=== PATIENT | female | born 1990 | race Caucasian/White ===

== ENCOUNTER 2020-09-15 14:20 | Outpatient (CLI) | payer OTHER, SELFPAY ==
[2020-09-15 15:24] LABS: Beta HCG Quantitative < 2.39 mIU/ML
== END 2020-09-15 14:21 | disposition home or self-care (01) ==
PROVIDERS: Visit Provider Student in an Organized Health Care Education/Training Program
DX: O20.0 Threatened abortion (principal)
CPT/HCPCS: 36415; 84702

== ENCOUNTER 2021-06-23 09:32 | Outpatient (CLI) | payer OTHER, SELFPAY ==
--- NOTE | ~2021-06-23 | US_ITS ---
US OB limited 06/23/2021 10:36 Indication: Hypertension Procedure: High-resolution Limited obstetrical ultrasound using transabdominal technique Comparison: Ultrasound dated 12/10/2020 Findings: There is a single living intrauterine in vertex presentation. Placenta is fundal without previa. heart rate is 143 BPM. Amniotic fluid is normal with MAY measuring 21.6 cm (nor mal range for gestational age is 7.5-24.4 cm). Impression: 1: Single living intrauterine in vertex presentation. 2: Normal MAY measures 21.6 cm. Reviewed, dictated and finalized at location A. Impression: 1: Single living intrauterine in vertex presentation. 2: Normal MAY measures 21.6 cm.
[2021-06-23 10:00] VITALS: BP 128/77; PULSE 111
[2021-06-23 10:05] LABS: Basophils Percent Auto 0.3 % (0.2-1.2); Eosinophils Absolute Auto 0.1 K/mm3 (0-0.3); Eosinophils Percent Auto 0.5 % (0-4.4); Hematocrit 36.1 % (37.0-47.0); Hemoglobin 12.1 g/dL (12.0-15.0); Immature Granulocyte Absolute 0.13 K/mm3 (0.00-0.031); Immature Granulocyte Percent A 1.3 % (0-0.5); Lymphocytes Absolute Auto 1.35 K/mm3 (0.9-3.2); Lymphocytes Percent Auto 13.4 % (18.3-44.2); Mean Corpuscular HGB Conc 33.5 g/dl (32-36); Mean Corpuscular Hemoglobin 30.4 pg (26-34); Mean Corpuscular Volume 90.7 fl (80-100); Monocytes Absolute Auto 0.7 K/mm3 (0.1-0.6); Monocytes Percent Auto 6.6 % (2.6-8.5); Neutrophils Absolute Auto 7.8 K/mm3 (1.3-6.7); Neutrophils Percent Auto 77.9 % (45.5-73.1); Platelet Count Result 200 k/mm3 (150-375); Red Blood Count 3.98 M/mm3 (4.2-5.4); White Blood Count 10.1 K/mm3 (4.5-10.0)
[2021-06-23 10:06] LABS: Add Urine Microscopic? NO; Appearance Urine Clear (Clear); Bilirubin Urine Negative (Negative); Blood Urine Negative (Negative); Color Urine Straw (Yellow); Glucose Urine UA Negative (Negative); Ketones Urine Negative (Negative); Leukocyte Esterase Ur Negative LEU/UL (NEGATIVE); Nitrate Urine Negative (Negative); Protein Urine Negative (Negative); Urobilinogen Urine Negative mg/dL (<2.0)
[2021-06-23 10:07] LABS: Specific Grav Ur 1.002 (1.001-1.035)
[2021-06-23 10:12] LABS: Creatinine Urine 15.4 mg/dL; Total Protein Urine Random 14 mg/dL; Ur Ttl Prot Creatinine Ratio 0.91 mg/mg (0-0.20)
[2021-06-23 10:14] LABS: Alanine Aminotransferase 15 U/L (4-35); Albumin Level 3.6 g/dL (3.5-5.1); Alkaline Phosphatase 105 U/L (38-126); Anion Gap 9 mmol/L (8-16); Aspartate Amino Transferase 20 U/L (14-36); Bilirubin,Total 0.5 mg/dL (0.2-1.3); Blood Urea Nitrogen 3 mg/dL (7-17); Calcium 9.1 mg/dL (8.4-10.2); Carbon Dioxide 20 mmol/L (22-30); Chloride 107 mmol/L (98-107); Estimated Glomerular Filt Rate > 60; Glucose 91 mg/dL (65-110); Potassium 3.7 mmol/L (3.4-5.0); Sodium 136 mmol/L (137-145); Uric Acid 4.4 mg/dL (2.5-7.5)
[2021-06-23 10:15] VITALS: BP 114/75; PULSE 109
[2021-06-23 10:22] VITALS: BP 114/75; PULSE 106
--- NOTE | 2021-06-23 11:03 | PC.NURSE ---
1019- Spoke with Dr. Ruelas, labs and BP's reviewed. Patient to be sent for MAY, if normal patient may be discharged to home.
== END 2021-06-23 10:50 | disposition home or self-care (01) ==
LOC: ANHOBOP 09:38 → ANHOBPP 09:38
PROVIDERS: Visit Provider Student in an Organized Health Care Education/Training Program
DX: O13.9 Gestational [pregnancy-induced] hypertension without significant proteinuria, unspecified trimester (principal); Z3A.00 Weeks of gestation of pregnancy not specified
CPT/HCPCS: 36415; 59025; 76815; 80053; 81003; 82570; 84156; 84550; 85025; 87086; 87088; 99199

== ENCOUNTER 2021-07-07 14:26 | Inpatient (IN) | payer OTHER, SELFPAY ==
[2021-07-07] VITALS (80 sets, daily range): BP systolic 113–147; BP diastolic 58–98; PULSE 90–141; RESP 14–16; TEMP 36.4–36.9; O2SAT 97–100; BMI 35.4
--- NOTE | 2021-07-07 14:26 | LDADM ---
This patient, Lala Gonzáles, was admitted to Labor/Delivery/Recovery 107 on 07/07/21 at 14:26. Plans for labor, pain management and were discussed with patient. Patient/family oriented to hospital policies and general routines including ID bracelet, bed and alarms, visiting hours, pain management, procedures, bathroom and other care routines, personal items, smoking policy, room service/diet and guest tray routines, infant security routines, and visiting hours. Patient/Family are encouraged to report perceived risks to care and to ask questions if they do not understand what they are told or what they should do. See OBIX for further documentation.
[2021-07-07 15:16] LABS: Basophils Percent Auto 0.4 % (0.2-1.2); Eosinophils Percent Auto 0.4 % (0-4.4); Hematocrit 35.3 % (37.0-47.0); Hemoglobin 11.8 g/dL (12.0-15.0); Immature Granulocyte Absolute 0.09 K/mm3 (0.00-0.031); Immature Granulocyte Percent A 0.8 % (0-0.5); Lymphocytes Absolute Auto 1.48 K/mm3 (0.9-3.2); Lymphocytes Percent Auto 13.5 % (18.3-44.2); Mean Corpuscular HGB Conc 33.4 g/dl (32-36); Mean Corpuscular Volume 89.8 fl (80-100); Monocytes Absolute Auto 0.8 K/mm3 (0.1-0.6); Monocytes Percent Auto 6.8 % (2.6-8.5); Neutrophils Absolute Auto 8.6 K/mm3 (1.3-6.7); Neutrophils Percent Auto 78.1 % (45.5-73.1); Platelet Count Result 204 k/mm3 (150-375); Red Blood Count 3.93 M/mm3 (4.2-5.4)
[2021-07-07] MEDS: LACTATED RINGERS 1,000 ML 125 ML IV CONT ×2 (15:17→18:00)
[2021-07-07] MEDS: OXYTOCIN 30 UNITS/NS 500 ML 30 UNITS/500 ML BAG IV CONT (15:19)
[2021-07-07 15:28] LABS: Alanine Aminotransferase 15 U/L (4-35); Albumin Level 3.6 g/dL (3.5-5.1); Alkaline Phosphatase 115 U/L (38-126); Anion Gap 8 mmol/L (8-16); Aspartate Amino Transferase 23 U/L (14-36); Bilirubin,Total 0.4 mg/dL (0.2-1.3); Blood Urea Nitrogen 5 mg/dL (7-17); Calcium 9.6 mg/dL (8.4-10.2); Carbon Dioxide 21 mmol/L (22-30); Chloride 108 mmol/L (98-107); Estimated Glomerular Filt Rate > 60; Glucose 114 mg/dL (65-110); Potassium 3.4 mmol/L (3.4-5.0); Sodium 137 mmol/L (137-145); Uric Acid 4.8 mg/dL (2.5-7.5)
--- NOTE | 2021-07-07 16:58 | WPDANESEPP ---
Anes - Eval Pre Procedure Date/Time: 07/07/21 16:58 Pre Op Diagnosis: iol Patient Data Age: 31 Gender: F Height: 1.68 m Weight: 99.5 kg Last Vital Signs Temp 98.4 F 07/07/21 15:19 Pulse 95 07/07/21 16:30 Resp 16 07/07/21 15:19 BP 130/77 07/07/21 16:30 Allergies Allergy/AdvReac Type Severity Reaction Status Date / Time ibuprofen Allergy Mild Hives Verified 07/07/21 11:28 Home Medications Medication Instructions Recorded Confirmed Type prenat.vits,balaji,[id number]-[id number] 1 tablet PO DAILY 12/04/20 07/07/21 History cholecalciferol (vitamin D3) 100 100 mcg PO DAILY 01/29/21 07/07/21 History mcg (4,000 unit) capsule Laboratory Tests 07/07/21 07/07/21 07/07/21 15:09 15:09 15:09 WBC 11.0 K/mm3 H K/mm3 (4.5-10.0) RBC 3.93 M/mm3 L M/mm3 (4.2-5.4) Hgb 11.8 g/dL L g/dL (12.0-15.0) Hct 35.3 % L % (37.0-47.0) MCV 89.8 fl fl (80-100) MCH 30.0 pg pg (26-34) MCHC 33.4 g/dl g/dl (32-36) RDW 14.0 % % (11.5-14.5) Plt Count 204 k/mm3 k/mm3 (150-375) MPV 11.0 fl H fl (7.4-10.4) Immature Gran % (Auto) 0.8 % H % (0-0.5) Neut % (Auto) 78.1 % H % (45.5-73.1) Lymph % (Auto) 13.5 % L % (18.3-44.2) [place] % (Auto) 6.8 % % (2.6-8.5) Eos % (Auto) 0.4 % % (0-4.4) Baso % (Auto) 0.4 % % (0.2-1.2) Lymph # (Auto) 1.48 K/mm3 K/mm3 (0.9-3.2) [place] # (Auto) 0.8 K/mm3 H K/mm3 (0.1-0.6) Eos # (Auto) 0.0 K/mm3 K/mm3 (0-0.3) Baso # (Auto) 0.0 K/mm3 K/mm3 (0.0-0.1) Abs Immat Gran (auto) 0.09 K/mm3 H K/mm3 (0.00-0.031) Absolute Neuts (auto) 8.6 K/mm3 H K/mm3 (1.3-6.7) Absolute Nucleated RBC 0.0 K/mm3 K/mm3 (0.0-0.012) Nucleated RBC % 0.0 % % (0.0-0.2) Sodium 137 mmol/L mmol/L (137-145) Potassium 3.4 mmol/L mmol/L (3.4-5.0) Chloride 108 mmol/L H mmol/L (98-107) Carbon Dioxide 21 mmol/L L mmol/L (22-30) Anion Gap 8 mmol/L mmol/L (8-16) BUN 5 mg/dL L mg/dL (7-17) Creatinine 0.50 mg/dL L mg/dL (0.7-1.0) Estim Creat Clear Calc Not Reportable Estimated GFR > 60 (59 - ) Glucose 114 mg/dL H mg/dL (65-110) Uric Acid 4.8 mg/dL mg/dL (2.5-7.5) Calcium 9.6 mg/dL mg/dL (8.4-10.2) Total Bilirubin 0.4 mg/dL mg/dL (0.2-1.3) AST 23 U/L U/L (14-36) ALT 15 U/L U/L (4-35) Alkaline Phosphatase 115 U/L U/L (38-126) Total Protein 7.0 g/dL g/dL (6.3-8.2) Albumin 3.6 g/dL g/dL (3.5-5.1) RPR Pending Blood Type Antibody Screen 07/07/21 07/07/21 15:09 15:09 WBC RBC Hgb Hct MCV MCH MCHC RDW Plt Count MPV Immature Gran % (Auto) Neut % (Auto) Lymph % (Auto) [place] % (Auto) Eos % (Auto) Baso % (Auto) Lymph # (Auto) [place] # (Auto) Eos # (Auto) Baso # (Auto) Abs Immat Gran (auto) Absolute Neuts (auto) Absolute Nucleated RBC Nucleated RBC % Sodium Cancelled Potassium Cancelled Chloride Cancelled Carbon Dioxide Cancelled Anion Gap Cancelled BUN Cancelled Creatinine Cancelled Estim Creat Clear Calc Cancelled Estimated GFR Cancelled Glucose Cancelled Uric Acid Calcium Cancelled Total Bilirubin Cancelled AST Cancelled ALT Cancelled Alkaline Phosphatase Cancelled Total Protein Cancelled Albumin Cancelled RPR Blood Type O Positive Anti
--- NOTE | 2021-07-07 17:03 | PM.IMHP ---
H&P: HPI History of Present Illness Date/Time: 07/07/21 17:03 Patient is a 31-year-old last menstrual period 10/07/2020 currently 39 weeks gestation with an CHANTELL 07/14/2021. Patient is dated by LMP which is consistent with ultrasound on 12/10/2020 at 9 weeks gestation. Patient presents to labor and delivery for induction of labor secondary to gestational hypertension. Patient was seen in OBGYN office today where blood pressure was noted to be 156/92. She had a previous elevated blood pressure measurement of 158/78 at approximately 36 weeks gestation. Patient states she has been taking blood pressure measurements at home and all measurements have been within normal limits. In general, patient reports feeling well. She denies any headache, chest pain, shortness of breath, nausea, vomiting, right upper quadrant tenderness, or visual disturbances. patient denies any vaginal bleeding, leakage of fluid, or contractions. Reports good movement. Of note, patient does have a history of gestational hypertension in previous pregnancies. Chief Complaint: Induction of labor Gestational hypertension Review of Systems Review of Systems: All systems reviewed & are unremarkable except as noted in HPI and below Constitutional: Constitutional: Reports as per HPI, Reports no additional constitutional complaints, Denies chills, Denies fever(s), Denies headache(s) and Denies night sweats Eyes: Eyes: Reports as per HPI and Reports no additional eye complaints ENT: Reports system reviewed and no additional complaints, except as documented, Reports as per HPI, Reports Normal hearing present and Denies headache(s) Cardiovascular: Cardiovascular: Reports as per HPI, Reports no additional cardiovascular complaints, Denies chest pain and Denies dyspnea Respiratory: Respiratory: Reports as per HPI, Reports no additional respiratory complaints, Denies cough and Denies dyspnea Gastrointestinal: Gastrointestinal: Reports as per HPI, Reports no additional gastrointestinal complaints, Denies abdominal pain, Denies change in bowel habits, Denies change in stool character, Denies nausea and Denies vomiting Genitourinary: Genitourinary: Reports no additional female genitourinary complaints, Reports as per HPI, Denies abnormal vaginal bleeding, Denies genital lesions, Denies hot flashes, Denies dyspareunia, Denies pelvic pain, Denies sexual dysfunction, Denies urinary incontinence, Denies vaginal discharge, Denies vaginal dryness and Denies vaginal odor Musculoskeletal: Musculoskeletal: Reports no additional musculoskeletal complaints and Reports as per HPI Integumentary/Breasts: Skin/Breast: Reports system reviewed and no additional complaints, except as docu, Reports as per HPI, Denies breast pain and Denies nipple discharge Neurologic: Reports system reviewed and no additional complaints, except as documented, Reports as per HPI, Reports Normal hearing present and Denies headache(s) Psychiatric: Psychiatric: Reports no additional psychiatric complaints, Reports as per HPI, Denies anxiety and Denies depression Endocrine: Endocrine: Reports no additional endocrine complaints and Reports as per HPI Hematologic/Lymphatic: Hematologic/Lymphatic: Reports no additional hematologic/lymphatic complaints and Reports as per HPI Allergic/Immunologic: Allergic/Immunologic: Reports no additional allergic/immunologic complaints and Reports as per HPI PMFSH Past Medical History Medical History Gestational hypertension Obesity and not yet delivered Vaginal delivery x 2 Family History Family History Father Diabetes mellitus Hypertension Mother Hypertension Hypothyroidism Grandparent Hypertension Cerebrovascular accident Social History Social History Smoking status: Never smoker Second hand tobacco sm
--- NOTE | 2021-07-07 17:04 | WPDANESEPP ---
Anes - Eval Pre Procedure Procedure: Labor epidural Date/Time: 07/07/21 17:04 Surgeon: amy Preop Diagnosis: Abd pain with contractions Pre Op Diagnosis: iol Patient Data Age: 31 Gender: F Height: 1.68 m Weight: 99.5 kg Last Vital Signs Temp 98.4 F 07/07/21 15:19 Pulse 102 H 07/07/21 17:00 Resp 16 07/07/21 15:19 BP 138/83 07/07/21 17:00 Allergies Allergy/AdvReac Type Severity Reaction Status Date / Time ibuprofen Allergy Mild Hives Verified 07/07/21 11:28 Home Medications Medication Instructions Recorded Confirmed Type prenat.vits,balaji,phm-lnft-foomm 1 tablet PO DAILY 12/04/20 07/07/21 History cholecalciferol (vitamin D3) 100 100 mcg PO DAILY 01/29/21 07/07/21 History mcg (4,000 unit) capsule Laboratory Tests 07/07/21 07/07/21 07/07/21 15:09 15:09 15:09 WBC 11.0 K/mm3 H K/mm3 (4.5-10.0) RBC 3.93 M/mm3 L M/mm3 (4.2-5.4) Hgb 11.8 g/dL L g/dL (12.0-15.0) Hct 35.3 % L % (37.0-47.0) MCV 89.8 fl fl (80-100) MCH 30.0 pg pg (26-34) MCHC 33.4 g/dl g/dl (32-36) RDW 14.0 % % (11.5-14.5) Plt Count 204 k/mm3 k/mm3 (150-375) MPV 11.0 fl H fl (7.4-10.4) Immature Gran % (Auto) 0.8 % H % (0-0.5) Neut % (Auto) 78.1 % H % (45.5-73.1) Lymph % (Auto) 13.5 % L % (18.3-44.2) [place] % (Auto) 6.8 % % (2.6-8.5) Eos % (Auto) 0.4 % % (0-4.4) Baso % (Auto) 0.4 % % (0.2-1.2) Lymph # (Auto) 1.48 K/mm3 K/mm3 (0.9-3.2) [place] # (Auto) 0.8 K/mm3 H K/mm3 (0.1-0.6) Eos # (Auto) 0.0 K/mm3 K/mm3 (0-0.3) Baso # (Auto) 0.0 K/mm3 K/mm3 (0.0-0.1) Abs Immat Gran (auto) 0.09 K/mm3 H K/mm3 (0.00-0.031) Absolute Neuts (auto) 8.6 K/mm3 H K/mm3 (1.3-6.7) Absolute Nucleated RBC 0.0 K/mm3 K/mm3 (0.0-0.012) Nucleated RBC % 0.0 % % (0.0-0.2) Sodium 137 mmol/L mmol/L (137-145) Potassium 3.4 mmol/L mmol/L (3.4-5.0) Chloride 108 mmol/L H mmol/L (98-107) Carbon Dioxide 21 mmol/L L mmol/L (22-30) Anion Gap 8 mmol/L mmol/L (8-16) BUN 5 mg/dL L mg/dL (7-17) Creatinine 0.50 mg/dL L mg/dL (0.7-1.0) Estim Creat Clear Calc Not Reportable Estimated GFR > 60 (59 - ) Glucose 114 mg/dL H mg/dL (65-110) Uric Acid 4.8 mg/dL mg/dL (2.5-7.5) Calcium 9.6 mg/dL mg/dL (8.4-10.2) Total Bilirubin 0.4 mg/dL mg/dL (0.2-1.3) AST 23 U/L U/L (14-36) ALT 15 U/L U/L (4-35) Alkaline Phosphatase 115 U/L U/L (38-126) Total Protein 7.0 g/dL g/dL (6.3-8.2) Albumin 3.6 g/dL g/dL (3.5-5.1) RPR Pending Blood Type Antibody Screen 07/07/21 07/07/21 15:09 15:09 WBC RBC Hgb Hct MCV MCH MCHC RDW Plt Count MPV Immature Gran % (Auto) Neut % (Auto) Lymph % (Auto) [place] % (Auto) Eos % (Auto) Baso % (Auto) Lymph # (Auto) [place] # (Auto) Eos # (Auto) Baso # (Auto) Abs Immat Gran (auto) Absolute Neuts (auto) Absolute Nucleated RBC Nucleated RBC % Sodium Cancelled Potassium Cancelled Chloride Cancelled Carbon Dioxide Cancelled Anion Gap Cancelled BUN Cancelled Creatinine Cancelled Estim Creat Clear Calc Cancelled Estimated GFR Cancelled Glucose Cancelled Uric Acid Calcium Cancelled Total Bilirubin Cancelled AST Cancelled ALT Cancelled Alkaline Phosphatase Cancelled Total Protein Can
--- NOTE | 2021-07-07 17:11 | WPDHPUPDATE1 ---
History and Physical Update Update Date/Time: 07/07/21 17:11 History and Physical has been reviewed, including an updated exam of the patient. There are NO changes in the patient's condition. Risks, benefits, and alternatives have been discussed and questions answered. Patient agrees to proceed with procedure.
--- NOTE | 2021-07-07 17:22 | P.PNOB_ITS ---
OB - PN: Subj Subjective Date/time seen: 07/07/21 17:22 SVE 3/50/-2. AROM performed. Clear amniotic fluid. EFM category 1. [place] shows ctx q6 mins. Continue pitocin. OB - PN: Obj Data Labs CBC & Chem 7: 07/07/21 15:09 07/07/21 15:09 Labs: Laboratory Results - last 24 hr 07/07/21 07/07/21 07/07/21 15:09 15:09 15:09 WBC 11.0 H RBC 3.93 L Hgb 11.8 L Hct 35.3 L MCV 89.8 MCH 30.0 MCHC 33.4 RDW 14.0 Plt Count 204 MPV 11.0 H Immature Gran % (Auto) 0.8 H Neut % (Auto) 78.1 H Lymph % (Auto) 13.5 L [place] % (Auto) 6.8 Eos % (Auto) 0.4 Baso % (Auto) 0.4 Lymph # (Auto) 1.48 [place] # (Auto) 0.8 H Eos # (Auto) 0.0 Baso # (Auto) 0.0 Abs Immat Gran (auto) 0.09 H Absolute Neuts (auto) 8.6 H Absolute Nucleated RBC 0.0 Nucleated RBC % 0.0 Sodium 137 Potassium 3.4 Chloride 108 H Carbon Dioxide 21 L Anion Gap 8 BUN 5 L Creatinine 0.50 L Estim Creat Clear Calc Not Reportable Estimated GFR > 60 Glucose 114 H Uric Acid 4.8 Calcium 9.6 Total Bilirubin 0.4 AST 23 ALT 15 Alkaline Phosphatase 115 Total Protein 7.0 Albumin 3.6 Blood Type O Positive Antibody Screen Negative 07/07/21 15:09 WBC RBC Hgb Hct MCV MCH MCHC RDW Plt Count MPV Immature Gran % (Auto) Neut % (Auto) Lymph % (Auto) [place] % (Auto) Eos % (Auto) Baso % (Auto) Lymph # (Auto) [place] # (Auto) Eos # (Auto) Baso # (Auto) Abs Immat Gran (auto) Absolute Neuts (auto) Absolute Nucleated RBC Nucleated RBC % Sodium Cancelled Potassium Cancelled Chloride Cancelled Carbon Dioxide Cancelled Anion Gap Cancelled BUN Cancelled Creatinine Cancelled Estim Creat Clear Calc Cancelled Estimated GFR Cancelled Glucose Cancelled Uric Acid Calcium Cancelled Total Bilirubin Cancelled AST Cancelled ALT Cancelled Alkaline Phosphatase Cancelled Total Protein Cancelled Albumin Cancelled Blood Type Antibody Screen OB - PN A/P Time Spent With Patient Time: Total time spent is greater than 50% in coordination of care (as documented) at patient's floor/unit and/or counseling patient:
[2021-07-07] MEDS: miSOPROStol 200 MCG TABLET 800 MCG (20:58)
--- NOTE | 2021-07-07 21:03 | PM.OBPRVD ---
OB - Delivery Note Procedure Delivery date: 07/07/21 Procedure: The patient is a 31-year-old now who presented to labor and delivery for induction labor secondary to gestational hypertension at 39 weeks gestation. Induction of labor was started with Pitocin. Pitocin was started and slowly titrated throughout the afternoon. Artificial rupture membranes was performed at 5:16 p.m. Pitocin was continued. Patient became uncomfortable and requested an epidural for pain management which was placed without difficulty. Patient continued to make progressive cervical change was noted be complete at 8:42 p.m. Patient was encouraged to push and found to be pushing well. She was prepped for delivery. At 8:45 p.m., infant head was delivered atraumatically without difficulty in ANGEL presentation. Occiput restituted to maternal right side. A compound presentation was noted as a hand delivered alongside face. With subsequent push, the infant's neck, shoulders, rest of body were delivered without difficulty. Infant was crying spontaneously. 's nose and mouth were suctioned with bulb suction. A nuchal cord x1 was noted and easily reduced. was placed on maternal abdomen where care was assumed by awaiting nursing staff. Delayed cord clamping was performed for approximately 60 seconds. Cord was clamped and cut. A true knot x1 was noted in cord. A segment of cord was collected for cord gases. Cord blood was also collected. The placenta was delivered spontaneously and intact. Uterine fundus was noted to be firm with massage. On inspection, a periurethral laceration was noted. This laceration was repaired with 3-0 Vicryl in the usual fashion. Excellent hemostasis was noted. A moderate amount of bleeding was noted from uterus. IV line was noted to be kinked and was straightened. Uterus became firm with massage and properly infusing IV. Cytotec 800 mcg was administered rectally prophylactically. Estimated blood loss for entire delivery was 250 cc. Infant was a live-born female infant, Apgars 8 and 9, weighing 7 lb 7 oz. Both mother and baby doing well at end of delivery. events: Induced HTN and Labor Induction Intrapartal events: None Induction method: per pitocin protocol Delivery augmentation: rupture of membranes Delivery monitor: external FHT and external uterine Route of delivery: Laceration Description: Periurethral Delivery repair: vicryl (3-0 vicryl) Specimen: Yes (placenta and cord, cord blood and cord gases) Quantitative Blood Loss (ml): 250 Anesthesia type: Epidural Disposition: floor Complications: No immediate complications [place] Baby Date of : 07/07/21 Time of : 20:45 Weeks of gestation at delivery: 39 gender: Female Weight (pounds): 7 Weight (ounces): 7 presentation: compound position: Right Occiput Anterior Placenta delivery description: Spontaneous cord vessel description: 3 Vessels, Nuchal Cord (x1), True Knot (x1) and Delayed Cord Clamping score one minute: 8 score five minutes: 9
[2021-07-07] MEDS: OXYTOCIN 30 UNITS/NS 500 ML 30 UNITS/500 ML BAG 125 UNITS IV CONT (21:36)
[2021-07-08] MEDS: HYDROcodone/acetaminophen (*CRX) 5-325 MG TABLET 1 TAB PO ×7 (00:34→23:44)
[2021-07-08 04:51] VITALS: BP 138/88; PULSE 77; RESP 15; TEMP 36.7; O2SAT 100
[2021-07-08 05:25] LABS: Hematocrit 34.7 % (37.0-47.0); Hemoglobin 11.5 g/dL (12.0-15.0)
[2021-07-08 08:00] VITALS: BP 121/69; PULSE 85; RESP 16; TEMP 37.1; O2SAT 100
[2021-07-08] MEDS: LANOLIN (LANSINOH) 7.5 GM CREAM 1 APPLIC TOPICAL (08:22)
[2021-07-08] MEDS: MULTIVIT/MIN/PREN/FOL AC/IRON TABLET 1 TAB PO (08:22)
[2021-07-08] MEDS: DOCUSATE SODIUM 100 MG CAPSULE PO (08:26)
--- NOTE | 2021-07-08 08:30 | PC.NURSE ---
Mother called out for assist with feeding. Mother reports she is using the nipple shield, is unable to draw nipple in. Mother used nipple shield with previous child and was able to wean within a few weeks Discussed nipple shield precautions and possible complications. Instructions given on application and cleaning of shield. Patient able to return demonstration on proper application of shield. Discussed the need to initiate pumping if continues to nurse with the shield. Patient verbalizes understanding. Mother is pumping using her Spectra pump. Mother denies difficulties or discomfort with feeding. is able to freely thrust tongue past gum ridge and flange both lips. Skin is intact on both nipples, no redness and bruising noted. Reviewed infant feeding cues, frequencies, duration of feedings, feeding elimination flow sheet, and signs of adequate intake. Demonstrated stimulation techniques to wake for feeding. Assisted with infant to breast. Reviewed positioning/alignment in cross cradle, holding breast in ?U? hold and guided asymmetrical latch on. Discussed rational for each. Infant able to latch correctly. Mother has a large nipple and will draw part of nipple in causing tenderness and will release latch. With shield in place infant was able to latch correctly. Reviewed signs of a correct latch, effective nursing and suck swallow ratio. Infant nursed eagerly, with steady draws and frequent swallowing noted. Reviewed the difference of effective vs ineffective nursing. Suggested mother stimulate while feeding to increase stimulation, increase intake and to assist with maintaining deep latch. Infant was able to maintain latch without discomfort to mother. Demonstrated how to adjust latch more deeply while feeding if needed. Mother reports she can feel change in latch and has no tenderness. Nipple care reviewed of lanolin after feedings, warm compresses as needed. Discussed weaning techniques.
[2021-07-08 08:36] LABS: Rapid Plasma Reagin Non-Reactive (NonReactive)
--- NOTE | 2021-07-08 09:06 | PM.OBPNVD ---
OB - PN: Subj Subjective Date/time seen: 07/08/21 09:06 Patient doing well this AM. Pain well controlled with medication. Denies any headache, chest pain, shortness of breath, nausea, vomiting, right upper quadrant, or visual disturbances. Ambulating without difficulty. Voiding well. Baby well. OB - PN: Obj Data Labs CBC & Chem 7: 07/08/21 05:04 07/07/21 15:09 Labs: Laboratory Results - last 24 hr 07/07/21 07/07/21 07/07/21 15:09 15:09 15:09 WBC 11.0 H RBC 3.93 L Hgb 11.8 L Hct 35.3 L MCV 89.8 MCH 30.0 MCHC 33.4 RDW 14.0 Plt Count 204 MPV 11.0 H Immature Gran % (Auto) 0.8 H Neut % (Auto) 78.1 H Lymph % (Auto) 13.5 L [place] % (Auto) 6.8 Eos % (Auto) 0.4 Baso % (Auto) 0.4 Lymph # (Auto) 1.48 [place] # (Auto) 0.8 H Eos # (Auto) 0.0 Baso # (Auto) 0.0 Abs Immat Gran (auto) 0.09 H Absolute Neuts (auto) 8.6 H Absolute Nucleated RBC 0.0 Nucleated RBC % 0.0 Sodium 137 Potassium 3.4 Chloride 108 H Carbon Dioxide 21 L Anion Gap 8 BUN 5 L Creatinine 0.50 L Estim Creat Clear Calc Not Reportable Estimated GFR > 60 Glucose 114 H Uric Acid 4.8 Calcium 9.6 Total Bilirubin 0.4 AST 23 ALT 15 Alkaline Phosphatase 115 Total Protein 7.0 Albumin 3.6 RPR Non-reactive Blood Type Antibody Screen 07/07/21 07/07/21 07/08/21 15:09 15:09 05:04 WBC RBC Hgb 11.5 L Hct 34.7 L MCV MCH MCHC RDW Plt Count MPV Immature Gran % (Auto) Neut % (Auto) Lymph % (Auto) [place] % (Auto) Eos % (Auto) Baso % (Auto) Lymph # (Auto) [place] # (Auto) Eos # (Auto) Baso # (Auto) Abs Immat Gran (auto) Absolute Neuts (auto) Absolute Nucleated RBC Nucleated RBC % Sodium Cancelled Potassium Cancelled Chloride Cancelled Carbon Dioxide Cancelled Anion Gap Cancelled BUN Cancelled Creatinine Cancelled Estim Creat Clear Calc Cancelled Estimated GFR Cancelled Glucose Cancelled Uric Acid Calcium Cancelled Total Bilirubin Cancelled AST Cancelled ALT Cancelled Alkaline Phosphatase Cancelled Total Protein Cancelled Albumin Cancelled RPR Blood Type O Positive Antibody Screen Negative OB - PN A/P Assessment and Plan (1) Normal spontaneous vaginal delivery: Code(s): O80 - Encounter for full-term uncomplicated delivery Status: Acute Assessment and Plan: PPD#1 doing well continue routine care monitor vitals and symptoms anticipate dc home tomorrow Time Spent With Patient Time: Total time spent is greater than 50% in coordination of care (as documented) at patient's floor/unit and/or counseling patient: Exam Const: General: cooperative, healthy appearing, comfortable and no acute distress GI: Inspection: non-distended GI Palp: Yes Soft to palpation and No Tenderness to palpation present (GI) Other: fundus firm below umbilicus Extrem: Right lower extremity: no edema Left lower extremity: no edema Other: no calf tenderness
--- NOTE | 2021-07-08 10:56 | WPDANLDPN2 ---
Anes-Prog Note L&D Date/Time: 07/08/21 10:56 Comfortable throughout: labor and delivery Neuraxial method: epidural Epidural/Spinal procedure site: clean & non-tender Neuro status: Neuro function grossly intact. Cardiovascular status: normal Respiratory status: normal Airway patency: baseline Mental status: baseline Post-Op hydration status: normal Vital Signs: Last Vital Signs Temp 37.1 C 07/08/21 08:00 Pulse 85 07/08/21 08:00 Resp 16 07/08/21 08:00 BP 121/69 07/08/21 08:00 Pulse Ox 100 07/08/21 08:00 Pain score (VAS): 12/06 I/O: Intake & Output 07/07/21 07/08/21 07/08/21 23:59 07:59 15:59 Intake Total 2700 500 Output Total 350 1400 500 Balance 2350 -900 -500 Post-procedural complaints: none Patient feedback: Patient satisfied with anesthetic care.
[2021-07-08 12:05] VITALS: BP 128/82; PULSE 82; RESP 18; TEMP 37.1; O2SAT 100
[2021-07-08 15:05] VITALS: BP 115/72; PULSE 83; RESP 18; TEMP 36.6
[2021-07-08] MEDS: BENZOCAINE 20% AER SPR (*SP) 56 GM CAN 1 SPRAY TOPICAL (15:05)
[2021-07-08 19:07] VITALS: BP 121/74; PULSE 80; RESP 16; TEMP 36.8
[2021-07-09] MEDS: HYDROcodone/acetaminophen (*CRX) 5-325 MG TABLET 1 TAB PO ×3 (03:10→11:03)
[2021-07-09] MEDS: DOCUSATE SODIUM 100 MG CAPSULE PO (03:10)
[2021-07-09 05:00] VITALS: BP 119/72; PULSE 83; RESP 16; TEMP 36.7
[2021-07-09] MEDS: MULTIVIT/MIN/PREN/FOL AC/IRON TABLET 1 TAB PO (06:58)
--- NOTE | 2021-07-09 07:00 | PC.NURSE ---
Patient instructed on viewing the discharge video Mother & Baby Care, The First Two Weeks . Patient was given the opportunity and encouraged to ask questions. Patient verbalized understanding of information shared and has been given the mother/baby guide for home reference.
[2021-07-09 08:30] VITALS: BP 137/84; PULSE 72; RESP 18; TEMP 36.9; O2SAT 100
--- NOTE | 2021-07-09 09:49 | PM.OBPNVD ---
OB - PN: Subj Subjective Date/time seen: 07/09/21 09:49 Patient doing well this morning. Denies any pelvic or abdominal pain. Ambulating without difficulty. Also denies any headache, chest pain, shortness of breath, nausea, vomiting, right upper quadrant tenderness, or visual disturbances. OB - PN: Obj Data Labs CBC & Chem 7: 07/08/21 05:04 07/07/21 15:09 OB - PN A/P Assessment and Plan (1) Normal spontaneous vaginal delivery: Code(s): O80 - Encounter for full-term uncomplicated delivery Status: Acute Assessment and Plan: PPD#2 dc home in stable condition emergency precautions reviewed f/u up in office in 1 week for BP check Time Spent With Patient Time: Total time spent is greater than 50% in coordination of care (as documented) at patient's floor/unit and/or counseling patient: Exam Const: General: cooperative, healthy appearing, comfortable and no acute distress GI: Inspection: non-distended GI Palp: Yes Soft to palpation and No Tenderness to palpation present (GI) Other: fundus firm below umbilicus Extrem: Right lower extremity: no edema Left lower extremity: no edema Other: no calf tenderness
--- NOTE | 2021-07-09 09:53 | P.DS_ITS ---
DS: Admitting Diagnosis Admitting Diagnosis Induction of labor Gestational hypertension OB - DS: Summary OB Procedures : None OB Procedures Intrapartum: Spontaneous Vag Delivery OB Procedures: : None Time Spent with Patient Time attestation: Total time spent providing and/or coordinating discharge services: DS: Data Data Completed and Pending Pending studies at discharge: Pending at discharge 07/07/21 21:48 Surgical [PTH] Routine Discharge Plan Discharge Attending physician on discharge: Keysha Ruelas Discharging Clinician: Keysha Ruelas Anticipated Discharge Date/Time: 07/09/21 09:53 Patient Disposition: Home, Self-Care Activity: as tolerated and pelvic rest Diet: regular Discharge Instructions: Call office ([phone]) to schedule a blood pressure check in 1 week and a visit in 4-6 weeks. You may take Ibuprofen 600mg every 6 hours as needed for pain. Pain medication may make you constipated. It may be helpful to take an [id number] stool softener, such as Colace and/or Senokot, along with the pain medication to help lessen constipation. Please take your blood pressure at home at least once daily. If the top number (SBP) is greater than 160 or the bottom number (DBP) is greater than 110, you need to contact the office or proceed to the ED. Call office or go to ED for pain not controlled with medication, headache, chest pain, shortness of breath, fever, chills, persistent nausea or vomiting, severe abdominal pain, heavy vaginal bleeding >2 pads/hour, foul vaginal discharge or odor, or problems with your breasts. Patient Instructions: Antibiotic Form Stand Alone Forms: General Discharge Information Follow-up/Referrals: Keysha Ruelas MD [Physician] - Discharge Medications: Continued prenat.vits,balaji,[id number] Tablet 1 tablet PO DAILY RF: 0 Discontinued cholecalciferol (vitamin D3) 100 mcg (4,000 unit) capsule 100 mcg PO DAILY RF: 0 Date of admission: 07/07/21 14:26 Primary Care Provider: PHYSICIAN,CUSTOMER SERVICE SALES [employer]OCIATE Admitting Provider: Keysha Ruelas Attending physician on admission: Keysha Ruelas Condition: Stable
[2021-07-10 10:52] VITALS: BP 137/83; PULSE 100; RESP 20; TEMP 36.8; O2SAT 100
== END 2021-07-09 12:00 | disposition home or self-care (01) | DRG 807 ==
LOC: ANHLDR 14:31 → ANHOB2 07-08 02:20
PROVIDERS: Admitting Provider Student in an Organized Health Care Education/Training Program; Visit Provider Student in an Organized Health Care Education/Training Program
DX: O13.4 Gestational [pregnancy-induced] hypertension without significant proteinuria, complicating childbirth (principal); Z37.0 Single live birth; Z3A.39 39 weeks gestation of pregnancy; O62.3 Precipitate labor; O71.82 Other specified trauma to perineum and vulva; O99.214 Obesity complicating childbirth; E66.9 Obesity, unspecified; O69.1XX0 Labor and delivery complicated by cord around neck, with compression, not applicable or unspecified
CPT/HCPCS: 36415; 80053; 84550; 85014; 85018; 85025; 86592; 86850; 86900; 86901; 88307; A9270; J2590; J7120

== ENCOUNTER 2024-12-31 12:58 | Emergency (ER) | payer OTHER, SELFPAY ==
--- NOTE | 2024-12-31 13:30 | ED_ITS ---
HPI - Skin/Abscess/Foreign Bdy General Chief complaint: Skin/Abscess/Foreign Body Stated complaint: RASH Time Seen by Provider: 12/31/24 13:30 Source: patient Mode of arrival: ambulatory Limitations: no limitations History of Present Illness HPI narrative: Lala is a 34-year-old female patient presenting to the clinic today with complaints of a rash times 2-3 days. She reports has a painful/stinging rash to the left lateral side just above her bra line. States that this has been going on for few days. Thinks she may have shingles. Denies any fevers, chills, body aches. Reports she has had chickenpox in the past. States she has been extremely stressed out Related Data Allergies Allergy/AdvReac Type Severity Reaction Status Date / Time ibuprofen Allergy Mild Hives Verified 12/31/24 13:28 Review of Systems Review of Systems: Pertinent positives per HPI. Patient denies any fever, chills, headache, visual changes, dizziness, cough, runny nose, sore throat, shortness of breath, chest pain, palpitations, nausea, vomiting, diarrhea, constipation, abdominal pain, or any urinary issues. PMFSH Past Medical History Medical History Obesity and not yet delivered Gestational hypertension Vaginal delivery x 3 Family History Family History Father Diabetes mellitus Hypertension Mother Hypertension Hypothyroidism Grandparent Hypertension Cerebrovascular accident Social History Social History Smoking status: Never smoker Second hand tobacco smoke exposure: No Alcohol intake: current Substance use: never Lack of Transportation: No Lack of Food: Never True Current Housing: I Have Housing Concerned About Future Housing: No Difficulty Paying Gas/Electric Bills: No Difficulty Paying for Meds: No Currently Unemployed: No Education: Bachelor's Degree Difficulty w/ Childcare or Family Care: No Spiritual care concerns: No Comments At the time of my signature, I reviewed and agree with the nursing past medical, surgical, social, and family history. There is no relevant family history pertinent to the patient complaint. Exam Narrative: General: Well-developed, well nourished, in no apparent distress Head: Normocephalic, atraumatic. Cardio: Regular rate and rhythm, s1 and s2 normal, no murmur appreciated. Resp: Clear to auscultation bilaterally, no rhonchi, rales, wheezing or rubs. Integumentary: [place], warm, and dry, intact without lesion, red, raised, vesicular rash with erythemic base to the left lateral side Course Course Emergency Course: Portions of this record may have been created with voice recognition software. Level of Care: Express Care Visit Vital Signs Vital signs: Vital Signs Temperature 36.6 C 12/31/24 13:48 Pulse Rate 87 12/31/24 13:48 Respiratory Rate 16 12/31/24 13:48 Blood Pressure 135/81 12/31/24 13:48 Pulse Oximetry 99 12/31/24 13:48 Temperature 36.6 C 12/31/24 13:48 Pulse Rate 87 12/31/24 13:48 Respiratory Rate 16 12/31/24 13:48 Blood Pressure 135/81 12/31/24 13:48 Pulse Oximetry 99 12/31/24 13:48 Vital signs reviewed MDM - Skin/Abscess/Foreign Bdy MDM Narrative Medical decision making narrative: At the time of visit patient is resting comfortably on the exam table. Patient appears to be nontoxic. Plan: I suspect patient has herpes zoster to. Prescription for acyclovir was sent to the pharmacy. Supportive measures were discussed with the patient and they voiced understanding discharge instructions and agrees to treatment plan. Return precautions reviewed Differential Diagnosis Differential diagnosis: Likely abscess of skin or subcutaneous tissue, viral exanthem, dermatophytosis, urticaria, herpes zoster, allergic reaction to drug, cellulitis, eczema, insect bites, impetigo and contact dermatitis Discharge Plan Discharge Clinical Impression: Shingles Qualifiers: Herpes zoster complications: without complications Qualified Code(s): B02.9 - Zoster without complications Patient Disposition: Home, Self-Care Condition: Stable Instructions: Antibiotic Form, Shingles (ED) Additional Instructions: May apply lidocaine patch to the affected area Take acyclovir as prescribed Avoid being around people, infants, or immunocompromise patient's May take Tylenol as needed for pain Follow-up with your doctor and 5-7 days if symptoms are not improving Patient Language: Bangladeshi Prescriptions: New acyclovir 800 mg tablet 800 mg PO Q4H 7 Days Qty: 42 0RF Rx Instructions: while awake; give 5 doses in 24 hours Follow-up/Referrals: Edgardo,NA Galvez [Primary Care Provider] - Time of Disposition: 13:56 Quality NIHSS Nursing Documentation ED NIHSS nursing documentation: reviewed/agree
[2024-12-31 13:48] VITALS: BP 135/81; PULSE 87; RESP 16; TEMP 36.6; O2SAT 99
== END 2024-12-31 13:57 | disposition home or self-care (01) ==
PROVIDERS: Emergency Provider Nurse Practitioner Family; PCP Nurse Practitioner Family
DX: B02.9 Zoster without complications (principal); E66.9 Obesity, unspecified; Z68.33 Body mass index [BMI] 33.0-33.9, adult
CPT/HCPCS: 99213; G0463